=== PATIENT | male | born 2005 | race African-American/Black ===

== ENCOUNTER 2023-04-26 14:50 | Emergency (ER) | payer SELFPAY ==
[2023-04-26 15:08] LABS: Bacteria/HPF None Seen HPF (None Seen); Bilirubin Negative (Negative); Blood, Urine Negative (Negative); CAUTI Indications for Culture Fever or rigors; Clarity Clear (Clear); Glucose, Urine (Dipstick) Normal (Negative); Ketone, Urine Negative (Negative); Leukocyte 75 Leu/uL (Negative); Nitrite Negative (Negative); Protein, Urine (Dipstick) Negative (Neg-Trace); RBC/HPF 0-3 HPF (0-3); Specific Gravity, Urine 1.011 (1.002-1.036); Squamous Epithelial 0-3 HPF (0-3); Urobilinogen Normal mg/dL (Less than 2); WBC/HPF 21-50 HPF (0-3)
[2023-04-26 15:10] LABS: Urine Culture Reflex Yes Yes
[2023-04-26] MEDS ORDERED: cefTRIAXone (ROCEPHIN) 500 MG VIAL ONE (16:06)
[2023-04-26] MEDS ORDERED: Lidocaine 1% MPF 2 ML VIAL ONE (16:06)
[2023-04-26 23:11] LABS: Chlam.trachomatis by PCR,Urine DETECTED (NotDetected); GC N.gonorrhoeae PCR,UrineVOID Not Detected (NotDetected)
== END 2023-04-26 16:24 | disposition home or self-care (01) ==
LOC: ERS 14:50
DX: R30.0 Dysuria (principal); Z20.2 Contact with and (suspected) exposure to infections with a predominantly sexual mode of transmission; F17.290 Nicotine dependence, other tobacco product, uncomplicated
CPT/HCPCS: 81001; 87086; 87491; 87591; 96372; 99283; J0696